=== PATIENT | female | born 1945 | race Caucasian/White ===

== ENCOUNTER 2018-09-25 23:16 | Emergency (ER) | payer MEDICARE, MEDICAID ==
[~2018-09-25] VITALS: Ht 152.4 cm; Wt 72.6 kg
[2018-09-25 23:33] VITALS: BP_SYST 143
--- NOTE | 2018-09-25 23:33 | NUR ---
Patient to ER bed 04 to gown for evaluation. Side rails up. Report given to PEDRIOT VILLALBA
--- NOTE | 2018-09-25 23:33 | NUR ---
Pt c/o vomiting x 6 episodes and LUQ abdominal pain since 1699 today. No active vomiting at this time, but c/o nausea. VSS. Family members at bedside.
--- NOTE | 2018-09-26 | NUR ---
Pt refuses pain medications, especially morphine. Dr. Feliciano notified.
--- NOTE | 2018-09-26 00:10 | NUR ---
Pt continues to c/o nausea. Dr. Feliciano notified. Pt to be medicated.
[2018-09-26] MEDS ORDERED: NACL 0.9% 1,000 ML IV ONE (00:14)
[2018-09-26] MEDS ORDERED: ONDANSETRON HCL 4 MG/2 ML VIAL IVP ONE (00:15)
[2018-09-26] MEDS ORDERED: PANTOPRAZOLE SODIUM 40 MG/VIAL (PROTONIX) IVP ONE (00:15)
--- NOTE | 2018-09-26 00:15 | NUR ---
Dr. Feliciano at bedside.
--- NOTE | 2018-09-26 00:20 | NUR ---
Pt vomits copious amounts of organge tinged emesis. Dr. Feliciano notified.
--- NOTE | 2018-09-26 00:40 | NUR ---
# 20 gauge angiocath placed to LAC. Use of asceptic technique. Opsite placed over site. Blood return noted. Blood for lab drawn from site. Flushed with 10 cc of normal saline. No evidence of infiltration noted. Patient tolerated well.
[2018-09-26 01:22] LABS: ANION GAP 14 (5-15); BASOPHILS % (AUTO) 0.2 % (0.0-2.0); CHLORIDE 97 mmol/L (98-107); CREATININE 0.98 mg/dL (0.55-1.30); EOSINOPHILS % (AUTO) 0.2 % (0.0-4.0); GLUCOSE 238 mg/dL (70-99); HEMATOCRIT 45.3 % (36-48); HEMOGLOBIN 15.5 g/dL (12.0-16.0); LYMPHOCYTES # (AUTO) 0.5 K/uL (1.0-5.5); LYMPHOCYTES % (AUTO) 4.1 % (20.5-51.5); MEAN CORPUSCULAR HEMOGLOBIN 30 pg (27-31); MEAN CORPUSCULAR HGB CONC 34 % (32-36); MEAN CORPUSCULAR VOLUME 87 fL (79.0-98.0); MONOCYTES # (AUTO) 0.7 K/uL (0.0-1.0); MONOCYTES % (AUTO) 5.2 % (1.7-9.3); NEUTROPHILS # (AUTO) 11.9 K/uL (1.8-7.7); NEUTROPHILS % (AUTO) 90.3 % (40.0-70.0); PLATELET COUNT (AUTO) 258 K/uL (130-430); POTASSIUM 3.4 mmol/L (3.5-5.1); RED BLOOD CELL COUNT(AUTO) 5.23 MIL/uL (4.2-6.2); RED CELL DISTRIBUTION WIDTH 14.5 % (9.0-15.0); SODIUM SERUM 136 mmol/L (136-145); UREA NITROGEN, BLOOD 15 mg/dL (8-21); WHITE BLOOD COUNT (AUTO) 13.2 K/uL (4.8-10.8)
[2018-09-26 01:28] LABS: ALANINE AMINOTRANSFERASE 40 U/L (12-78); ALBUMIN 4.6 g/dL (3.4-4.8); ASPARTATE AMINOTRANSFERASE 27 U/L (10-37); CALCIUM 10.3 mg/dL (8.4-11.0); LIPASE 117 U/L (73-393); TOTAL BILIRUBIN 0.7 mg/dL (0.0-1.0)
[2018-09-26] MEDS ORDERED: PREDNISONE 20 MG TABLET PO ONE (02:00)
--- NOTE | 2018-09-26 02:15 | NUR ---
# 14 FR NG tube placed to Left nare. Placement checked by auscultation of instilled air into stomach and aspiration of gastric contents. Tubing taped in place to prevent dislodging. Patient tolerated fair. Immediate return of 350 mL bilous stomach contents to suction canister via intermittent wall suction.
--- NOTE | 2018-09-26 03:00 | NUR ---
Pt resting with eyes closed, VSS. NGT remains patent and secure to left nare with bilous stomach contents to tubing and ~ 355 mL to suction canister on intermittent low wall suction. Family members at bedside and updated on POC.
[2018-09-26 03:40] VITALS: BP_SYST 118
--- NOTE | 2018-09-26 03:40 | NUR ---
Patient to be transferred to [facility]. Is being transferred due to higher level of care. Receiving facility has accepting physician and available space. ER physician has signed transfer form. Patient or responsible alliance party has agreed to transfer and signed form. Patient belongings inventoried and will be sent with patient. Copy of nursing notes, lab reports, EKG, Physicians Orders and X-rays to be sent with patient. Report called to PEDRITO Duff at receiving facility. Receiving physician is Dr. Robbins. Pt leaves in via stretcher in care of [facility] ambulance in stable condition.
== END 2018-09-26 03:40 | disposition short-term general hospital (02) ==
LOC: SED 23:16
DX: K56.609 Unspecified intestinal obstruction, unspecified as to partial versus complete obstruction (principal); R11.10 Vomiting, unspecified; R03.0 Elevated blood-pressure reading, without diagnosis of hypertension; Z88.6 Allergy status to analgesic agent
CPT/HCPCS: 36415; 74176; 80053; 83690; 85025; 96361; 96374; 96375; 99285; C9113; J2405; J7030